=== PATIENT | female | born 1950 | race Two or more races ===

== ENCOUNTER 2024-05-05 08:33 | Emergency (ER) | payer OTHER, MEDICAID ==
[~2024-05-05] VITALS: Ht 149.9 cm; Wt 57.9 kg
[2024-05-05 08:56] VITALS: BP 120/59; PULSE 18; RESP 18; TEMP 98.6; O2SAT 96
[2024-05-05] MEDS ORDERED: NAPHSOL OP (09:22)
== END 2024-05-05 09:28 | disposition home or self-care (01) ==
LOC: ER 08:33
DX: H10.13 Acute atopic conjunctivitis, bilateral (principal)

== ENCOUNTER 2025-01-26 08:18 | Emergency (ER) | payer OTHER, MEDICAID ==
[~2025-01-26] VITALS: Ht 144.8 cm; Wt 60.7 kg
[~2025-01-26 08:18] MED LIST: NAPHSOL OP
[2025-01-26 09:42] VITALS: BP 168/75; PULSE 62; RESP 16; TEMP 98.1; O2SAT 96
[2025-01-26] MEDS: methylPREDNISolone SOD SUCC 125 MG/2 ML VL IM ONE (10:18)
[2025-01-26] MEDS: HYDROcodone-ACET 5/325MG TAB PO ONE (10:18)
--- NOTE | 2025-01-26 10:30 | ED.PDOC ---
Back pain HPI HPI Comments 74-year-old female presents with a chief complaint of sciatica pain onset last night. Patient states that her pain is localized to her right buttocks and radiates down her right posterior leg. Patient is able to walk but states that it is painful to do so. Patient states that she has been trying naproxen and Tylenol at home but has had no relief for symptoms. Denies history of chronic steroid use or history of osteoporosis Denies any history of cancer Denies fevers chills night sweats nausea vomiting unintentional weight loss Denies IV drug use history of HIV/TB Denies abdominal "tearing" pain Denies syncope Denies urinary incontinence or urinary changes Denies numbness tingling of the groin or inner thigh Denies previous back procedure or surgery Chief Complaint: Lower Extremity Time Seen by MD: 10:06 Primary Care Provider: ? Reviewed Notes: Medications, Allergies Allergies: Coded Allergies: NO KNOWN ALLERGIES (Unverified , 05/05/24) Home Meds Active Scripts Gabapentin (Gabapentin) 100 Mg Cap, 1 CAP PO TID for 7 Days, #21 CAP 0 Refills Prov:SUSANA ELIAS BINDERY SUPERVISOR 01/26/25 Methylprednisolone (Medrol Dosepak) 4 Mg Bang, 4 MG PO UD for 7 Days, #21 TAB 0 Refills UAD Prov:SUSANA ELIAS BINDERY SUPERVISOR 01/26/25 Naphazoline W/ Pheniramine (Naphcon-A 0.025-0.3 %) 1 Abi Abi, 1 DROP OP QID, #15 ML Prov:SHANNAN MELENDEZ PAC 05/05/24 Information Source: Patient Mode of Arrival: Ambulatory Timing: Hours Duration: Since onset Location of Back pain: (R) Buttocks Radiates to: Posterior: (R) Thigh Severity: Moderate Prehospital treatment: None Quality: Sharp Past Medical History PAST MEDICAL HISTORY: Denies Surgical History: Denies all surgeries OPERATIONS MANAGEMENT TRAINEE History: No Pertinent OPERATIONS MANAGEMENT TRAINEE History Family History Family History: Reviewed,noncontributory to illness Social History Smoker: Non-Smoker Alcohol: Denies ETOH Use Drugs: Denies Drug Use Constitutional: denies: chills, diaphoresis, fatigue, fever, malaise, sweats, weakness, others EENTM: denies: blurred vision, double vision, ear bleeding, ear discharge, ear drainage, ear pain, ear ringing, eye pain, eye redness, hearing loss, mouth pain, mouth swelling, nasal discharge, nose bleeding, nose congestion, nose pain, photophobia, tearing, throat pain, throat swelling, voice changes, others Respiratory: denies: cough, hemoptysis, orthopnea, SOB at rest, shortness of breath, SOB with excertion, stridor, wheezing, others Cardiovascular: denies: chest pain, dizzy spells, diaphoresis, Dyspnea on exertion, edema, irregular heart beat, left arm pain, lightheadedness, palpitations, PND, syncope, others Gastrointestinal: denies: abdomen distended, abdominal pain, blood streaked bowels, constipated, diarrhea, dysphagia, difficulty swallowing, hematemesis, melena, nausea, poor appetite, poor fluid intake, rectal bleeding, rectal pain, vomiting, others Genitourinary: denies: abnormal vagina bleeding, burning, dyspareunia, dysuria, flank pain, frequency, hematuria, incontinence, pain, , vagina discharge, urgency, others Neurological: denies: dizziness, fainting, headache, left sided numbness, left sided weakness, numbness, paresthesia, pre-existing deficit, right sided numbness, right sided weakness, seizure, speech problems, tingling, tremors, weakness, others Musculoskeletal: reports: muscle pain; denies: back pain, gout, joint pain, joint swelling, muscle stiffness, neck pain, others Integumetry: denies: bruises, change in color, change in hair/nails, dryness, laceration, lesions, lumps, rash, wounds, others Allergic/Immunocompromised: denies: Difficulty Healing, Frequent Infections, Hives, Itching, others Hematologic/Lymphatic: denies: anemia, blood clots, easy bleeding, easy bruising, swollen glands, others Endocrine: denies: excessive hunger, excessive sweating, excessive thirst, excessive urination, flushing, intolerance to cold, intolerance to heat, unexplained weight gain, unexplained weight loss, others Psychiatric: denies: anxiety, bipolar disorder, depression, hopeless, panic disorder, schizophrenia, sleepless, suicidal, others All Other Systems: Reviewed and Negative Physical Exam General Appearance: No Apparent Distress, Normal HEENT: Normal ENT Inspection, Pharynx Normal, TMs Normal Neck: Full Range of Motion, Non-Tender, Normal, Normal Inspection Respiratory: Chest Non-Tender, Lungs Clear, No Accessory Muscle Use, No Respiratory Distress, Normal Breath Sounds Cardiovascular: No Edema, No JVD, No Murmur, No Gallop, Normal Peripheral Pulses, Regular Rate/Rhythm Breast Exam: Deferred Gastrointestinal: No Organomegaly, Non Tender, No Pulsatile Mass, Normal Bowel Sounds, Soft Genitalia: Deferred Pelvic: Deferred Rectal: Deferred Extremities: No calf tenderness, Normal capillary refill, Normal inspection, Normal range of motion, Non-tender, No pedal edema Musculoskeletal : Apperance: Normal Neurologic: Alert, locomotive engineer electric II-XII nml as Tested, No Motor Deficits, Normal Affect, Normal Mood, No Sensory Deficits Cerebellar Function: Normal Reflexes: Normal Skin: Dry, Normal Color, Warm Lymphatic: No Adenopathy Was a procedure done? Was a procedure done?: No Back Pain Differential Dx Differential Diagnosis: Musculoskeletal Pain X-Ray, Labs, Meds, VS Vital Signs Date Time Temp Pulse Resp B/P (MAP) Pulse Ox O2 Delivery O2 Flow Rate FiO2 01/26/25 09:42 98.1 62 16 168/75 (106) 96 98.1 01/26/25 09:42 62 16 96 Room Air 01/26/25 09:16 98.1 62 16 168/75 (106) 96 98.1 Current Medications Medications (Trade) Dose Ordered Sig/Jeromy Route Start Time Stop Time Status Last Admin Acetaminophen/ Hydrocodone Bitart ([place] 5/325MG Tab) 1 tab ONCE ONCE PO 01/26/25 10:15 01/26/25 10:16 DC 01/26/25 10:18 Methylprednisolone Sodium Succinate (Solu Medrol) 125 mg ONCE ONCE IM 01/26/25 10:15 01/26/25 10:16 DC 01/26/25 10:18 X-Ray, Labs, Meds, VS Comment 74-year-old female presents with a chief complaint of sciatica pain onset last night. Patient arrives alert and oriented, ABC's intact, afebrile, vital signs stable, saturating well in room air Given patient's history and exam: Sciatica, cord compression, cauda equina, aortic dissection, Guillain-Pioneer syndrome, epidural hematoma/abscess were all considered. Patient not toxic or ill-appearing. Vital signs within acceptable limits. Positive straight leg raise on exam with tenderness to the buttock consistent with sciatica. No vertebral point tenderness noted over the T or L- spine. No fever or IV drug use The patient does not warrant a radiological exam at this time. The patient was given Medication for pain control in the ED. Advised patient to try to take alternating Ibuprofen and Tylenol to help with inflammation of the sciatic nerve and surrounding tissues and should try to do low back stretches but also try to rest and avoid excessive sitting and bending. On reassessment, the patient's symptoms improved, and patient was able to ambulate without assistive devices. The patient will f/u with PMD to see if his/her symptoms carla. An MRI may need to be ordered if the symptoms worsen or do not improve over time. The patient was counseled in regard to the diagnosis and management of the condition and verbalized understanding of this. The patient understands to return to the ER or seek immediate medical attention if the symptoms worsen or return. Additional MDM Review of External, Non-ED records: External records reviewed. Discussion with independent historian (EMS, family) history obtained from the patient/parents (if applicable) at bedside Chronic conditions affecting care: None Social determinants of health affecting care: None Consideration of admission (observation or admission): I considered escalation of care to admission for this patient, however given the reassuring workup, the patient is safe for outpatient management. Time of 1ST Reevaluation: 10:36 Reevaluation 1ST: Unchanged Patient Education/Counseling: Diagnosis, Treatment, Prognosis Family Education/Counseling: No Family Present SEPSIS Sepsis Screen Date sepsis recognized/suspect: Jan 26, 2025 Time Sepsis recognized/suspect: 829 Recent Procedure: No On Antibiotic Therapy: No Respiratory Rate >20: No Heart Rate >90: No Temp<36 C (96.8 F) or >38.3 C: No SBP <90 or MAP <65 mmHG: No New Acute Mental Status Change: No Is the patient on CPAP, BIPAP,: No Orders/Vitals/Labs Vital Signs Date Time Temp Pulse Resp B/P (MAP) Pulse Ox O2 Delivery O2 Flow Rate FiO2 01/26/25 09:42 98.1 62 16 168/75 (106) 96 98.1 01/26/25 09:42 62 16 96 Room Air 01/26/25 09:16 98.1 62 16 168/75 (106) 96 98.1 Departure 1 Departure Time of Disposition: 11:18 Impression: Primary Impression: Lumbar radiculopathy Disposition: HOME / SELF CARE / HOMELESS Condition: Stable e-Prescriptions Gabapentin (Gabapentin) 100 Mg Cap 1 CAP PO TID for 7 Days, #21 CAP 0 Refills Prov: SUSANA ELIAS NP 01/26/25 Methylprednisolone (Medrol Dosepak) 4 Mg Bang 4 MG PO UD for 7 Days, #21 TAB 0 Refills UAD Prov: SUSANA ELIAS NP 01/26/25 Critical Care Note Critical Care Time?: No Stability Stability form required: No Heart Score Heart Score: Heart Score Response (Comments) Value History N/A 0 EKG N/A 0 Age N/A 0 Risk Factors N/A 0 Troponin N/A 0 Total 0 I personally scribed for SUSANA ELIAS NP ([email or web address]) on 01/26/25 at 10:30. Electronically submitted by Alberto Collado ([email or web address]). SUSANA ELIAS NP Jan 26, 2025 10:30
[2025-01-26] MEDS ORDERED: METH4PAK PO (11:20)
[2025-01-26] MEDS ORDERED: GABA-1308 PO (11:20)
== END 2025-01-26 11:18 | disposition home or self-care (01) ==
LOC: ER 08:18
DX: M54.16 Radiculopathy, lumbar region (principal)
CPT/HCPCS: 96372; 99283; J2919